=== PATIENT | female | born 1975 | race Caucasian/White ===

== ENCOUNTER 2018-06-07 16:27 | Inpatient (IN) ==
--- NOTE | 2018-06-07 17:01 | XR ---
EXAM DATE: 06/07/2018 4:59 PM EST AGE/SEX: 42 years / Female INDICATIONS: Chest pain. CLINICAL DATA: This is the patient's initial encounter. Patient reports that signs and symptoms have been present for 1 day and indicates a pain score of 10/10. MEDICAL/SURGICAL HISTORY: Hypertension. None. COMPARISON: No prior exams available for comparison. FINDINGS: A single AP view of the chest demonstrates the lungs to be symmetrically aerated without evidence of mass, infiltrate or effusion. The cardiomediastinal contours are unremarkable. Osseous structures a re intact. CONCLUSION: The lungs are clear. Electronically signed by: Jean Weber MD Board Certified Radiologist 06/07/2018 5:00 PM EST
[2018-06-07] MEDS: dilTIAZem Inj 125 MG in Sodium Chlor 0.9% Inj 100 ML IV.CONT PRN ×2 (17:03→23:34)
[2018-06-07 17:15] LABS: Baso % (Auto) 0.2 % (0.0-2.0); Eos % (Auto) 0.3 % (0.0-4.0); Hematocrit 44.1 % (35.0-46.0); Hemoglobin 15.1 gm/dL (11.6-15.3); Lymph # (Auto) 1.6 th/mm3 (1.0-4.8); Lymph % (Auto) 16.8 % (9.0-44.0); Mean Corpuscular HGB Conc 34.1 % (32.0-36.0); Mean Corpuscular Hemoglobin 29.1 pg (27.0-34.0); Mean Corpuscular Volume 85.2 fL (80.0-100.0); Mean Platelet Volume 8.5 fL (7.0-11.0); Mono # (Auto) 0.9 th/mm3 (0.0-0.9); Mono % (Auto) 9.8 % (0.0-8.0); Neut # (Auto) 6.8 th/mm3 (1.8-7.7); Neut % (Auto) 72.9 % (16.0-70.0); Platelet Count 325 th/mm3 (150-450); Red Blood Count 5.18 mil/mm3 (4.00-5.30); Red Cell Distribution Width 13.1 % (11.6-17.2); White Blood Count 9.3 th/mm3 (4.0-11.0)
[2018-06-07 17:28] LABS: Alanine Aminotransferase 68 U/L (10-53); Albumin 3.7 g/dL (3.4-5.0); Anion Gap 13 meq/L (5-15); Aspartate Aminotransferase 78 U/L (15-37); Blood Urea Nitrogen 7 mg/dL (7-18); Calcium 9.5 mg/dL (8.5-10.1); Carbon Dioxide 22.9 meq/L (21.0-32.0); Chloride 101 meq/L (98-107); Glomerular Filtration Rate 81 mL/min (>89); Glucose,Random 181 mg/dL (74-106); Potassium 3.5 meq/L (3.5-5.1); Sodium 137 meq/L (136-145)
[2018-06-07 17:31] LABS: Alkaline Phosphatase 102 U/L (45-117); Total Protein 8.2 g/dL (6.4-8.2); Troponin I 0.05 ng/mL (0.02-0.05)
[2018-06-07 17:33] LABS: Creatine Kinase 76 U/L (26-192)
[2018-06-07] MEDS ORDERED: Labetalol HCl Inj 100 MG/20 ML Vial IV.PUSH ONE (17:33)
[2018-06-07] MEDS ORDERED: Labetalol HCl Inj 20 MG/4 ML Vial IV.PUSH ONE (17:45)
[2018-06-07 18:08] LABS: Alcohol 5 mg/dL (0-5)
[2018-06-07] MEDS ORDERED: Bisacodyl 10 MG Supp RECTAL PRN (18:08)
[2018-06-07] MEDS ORDERED: Acetaminophen 325 MG Tablet PO PRN (18:08)
--- NOTE | 2018-06-07 18:10 | ED ---
HPI General Chief Complaint: Chest Pain Stated Complaint: syncope Time Seen by Provider: 06/07/18 16:38 History of Present Illness HPI narrative: This is a 42-year-old female with history of atrial fibrillation , substance-induced mood disorder, presents today with complaints of palpitations and shortness of breath. Patient states she felt herself started having palpitations and chest tightness earlier this afternoon. She reports the pain as a tightness, she could not quantitate it on the pain scale. She also reports feeling anxious. She reports that she is been taking all of her medications as prescribed which includes diltiazem. Related Data Home Medications Medication Instructions Recorded Confirmed diltiazem HCl [Cardizem] 30 mg PO BID 06/07/18 06/07/18 Previous Rx's Medication Instructions Recorded lisinopril 10 mg PO DAILY #30 tab 03/06/18 Allergies Allergy/AdvReac Type Severity Reaction Status Date / Time No Known Allergies Allergy Verified 03/06/18 20:13 Review of Systems ROS: all other systems reviewed are negative Constitutional Reports system reviewed and no additional complaints, except as [facility] Eyes Reports system reviewed and no additional complaints, except as [facility] ENT Reports system reviewed and no additional complaints, except as [facility] Cardiovascular Reports chest pain (Tightness), Reports irregular heart rhythm, Reports palpitations and Reports dyspnea Respiratory Reports dyspnea Gastrointestinal Reports system reviewed and no additional complaints, except as [facility] Genitourinary Reports system reviewed and no additional complaints, except as [facility] Musculoskeletal Reports system reviewed and no additional complaints, except as [facility] Neurologic Reports system reviewed and no additional complaints, except as [facility] Social History Social History Substance History: No History of Abuse Second Hand Smoke Exposure: Yes Smoking Status: Never smoker Tobacco Type: Cigarettes How Often Do You Have a Drink Containing Alcohol: Never Recent Travel in [facility] within the Last 8 Weeks: No Recent Out of Country Travel within the Last 8 Weeks: No Immunization History Tetanus Immunization: Unsure Exam Narrative Exam Narrative: GENERAL: Well-developed well-nourished female who appears anxious. Patient is in no acute respiratory distress. SKIN: Focused skin assessment warm/dry. HEAD: Atraumatic. Normocephalic. EYES: Pupils equal and round. No scleral icterus. No injection or drainage. ENT: No nasal bleeding or discharge. Mucous membranes pink and moist. NECK: Trachea midline. Supple. No JVD. CARDIOVASCULAR: Irregularly irregular with a rate in the 180s-200s. No murmur appreciated. RESPIRATORY: No accessory muscle use. Clear to auscultation. Breath sounds equal bilaterally. GASTROINTESTINAL: Abdomen soft, non-tender, nondistended. Hepatic and splenic margins not palpable. MUSCULOSKELETAL: No obvious deformities. No clubbing. No cyanosis. No edema. NEUROLOGICAL: Awake and alert. No obvious cranial nerve deficits. Motor grossly within normal limits. Normal speech. PSYCHIATRIC: Anxious appearing. Course Initial Documented Vital Signs Temperature 97.9 F 06/07/18 16:28 Pulse Rate 200 H 06/07/18 16:28 Respiratory Rate 26 H 06/07/18 16:28 Pulse Oximetry 95 06/07/18 16:28 Last Documented Vital Signs Temperature 97.9 F 06/07/18 16:28 Pulse Rate 145 H 06/07/18 17:32 Respiratory Rate 24 06/07/18 17:32 Blood Pressure 92/58 L 06/07/18 17:32 Pulse Oximetry 99 06/07/18 17:32 Medical Decision Making [facility] Narrative Medical decision making narrative: This is a 42-year-old female with history of A. fib, presents today with complaints of potation's, chest tightness, shortness of breath. The patient is noted to be in A. fib with RVR. She was given 2 loading doses of IV diltiazem. Her heart rate still remains in the mid 100s. She was given a 10 mg dose of labetalol. She is currently on a diltiazem drip at 15 mg/h She will be admitted to the hospital. There is a call Out to the admitting physician. There is a tox screen and alcohol level pending at this time. Looking through old records, she has had alcohol induced mood disorder and alcohol abuse. She has been given 2 mg of Ativan in addition to the diltiazem and labetalol. Medical Screen Exam Complete: Yes Emergency Medical Condition: Yes Differential Diagnosis Differential Diagnosis: A. fib with RVR versus metabolic derangement versus SVT versus alcohol withdrawal Lab Data Result diagrams: 06/07/18 16:35 06/07/18 16:35 Lab Results 06/07/18 06/07/18 06/07/18 Range/Units 16:35 16:35 16:35 WBC 9.3 (4.0-11.0) th/mm3 RBC 5.18 (4.00-5.30) mil/mm3 Hgb 15.1 (11.6-15.3) gm/dL Hct 44.1 (35.0-46.0) % MCV 85.2 (80.0-100.0) fL MCH 29.1 (27.0-34.0) pg MCHC 34.1 (32.0-36.0) % RDW 13.1 (11.6-17.2) % Plt Count 325 (150-450) th/mm3 MPV 8.5 (7.0-11.0) fL Neut % (Auto) 72.9 H (16.0-70.0) % Lymph % (Auto) 16.8 (9.0-44.0) % Mathews % (Auto) 9.8 H (0.0-8.0) % Eos % (Auto) 0.3 (0.0-4.0) % Baso % (Auto) 0.2 (0.0-2.0) % Neut # (Auto) 6.8 (1.8-7.7) th/mm3 Lymph # (Auto) 1.6 (1.0-4.8) th/mm3 Mathews # (Auto) 0.9 (0.0-0.9) th/mm3 Eos # (Auto) 0.0 (0.0-0.4) th/mm3 Baso # (Auto) 0.0 (0.0-0.2) th/mm3 WBC Differential . Differential Comment Auto diff final Sodium 137 (136-145) meq/L Potassium 3.5 (3.5-5.1) meq/L Chloride 101 (98-107) meq/L Carbon Dioxide 22.9 (21.0-32.0) meq/L Anion Gap 13 (5-15) meq/L BUN 7 (7-18) mg/dL Creatinine 0.78 (0.50-1.00) mg/dL Estimated GFR 81 L (>89) mL/min Random Glucose 181 H (74-106) mg/dL Calcium 9.5 (8.5-10.1) mg/dL Total Bilirubin 1.2 H (0.2-1.0) mg/dL AST 78 H (15-37) U/L ALT 68 H (10-53) U/L Alkaline Phosphatase 102 (45-117) U/L Total Creatine Kinase 76 (26-192) U/L Troponin I 0.05 (0.02-0.05) ng/mL Total Protein 8.2 (6.4-8.2) g/dL Albumin 3.7 (3.4-5.0) g/dL Serum Alcohol Cancelled Imaging Data Radiologist's impression: Chest X-Ray 06/07/18 16:39 CONCLUSION: The lungs are clear. Discharge Plan Discharge Disposition Patient Disposition: ED Admit(ED Internal Use Only) Discharge Details Diagnosis: Atrial fibrillation with rapid ventricular response, Elevated liver enzymes Physicians Team ED Provider: Shyam Frazier Primary Care Provider: Primary Care Cande Erickson Rxs /Orders / Referrals /Forms Prescriptions: No Action lisinopril 10 mg tablet 10 mg PO DAILY Qty: 30 RF: 2 diltiazem HCl [Cardizem] 30 mg Tablet 30 mg PO BID RF: 0 Discharge Instructions Patient Printed Instructions: Chest Pain (ED) Discharge Interventions Interventions: Vital Signs Last Done: 06/07/18 17:32 Status ED Status: With Doctor
[2018-06-07] MEDS ORDERED: Haloperidol Inj 5 MG/ML Ampul IV.PUSH PRN (18:15)
[2018-06-07] MEDS ORDERED: LORazepam 1 MG Tablet PO PRN (18:15)
[2018-06-07 18:31] LABS: Amphetamine Screen,Urine Neg (Neg); Barbiturate Screen,Urine Neg (Neg); Cannabinoid Screen,Urine Neg (Neg); Cocaine Screen,Urine Neg (Neg)
[2018-06-07 18:36] LABS: Opiate Screen,Urine Neg (Neg)
[2018-06-07] MEDS ORDERED: Magnesium Oxide 400 MG Tablet PO ONE (19:00)
[2018-06-07 19:01] LABS: Magnesium 1.1 mg/dL (1.5-2.5)
--- NOTE | 2018-06-07 19:14 | ECG ---
Date Performed: 06/07/2018 Time Performed: 16:38:52 PTAGE: 42 years EKG: ATRIAL FIBRILLATION WITH RAPID VENTRICULAR RESPONSE VOLTAGE CRITERIA FOR LVH Nonspecific ST and T wave abnormalities Compared to prior electrocardiogram, Rapid atrial fibrillation is present. The extremely fast rate along with short RR intervals might raise the concern of some type of accesso ry pathway. DOCTOR: Alejandro Powers Interpretating Date/Time 06/07/2018 19:12:09
[2018-06-07] MEDS: Enoxaparin Inj 40 MG/0.4 ML Syringe SQ SCH (19:30)
--- NOTE | 2018-06-07 20:07 | P.HPIM ---
History of Present Illness Primary Care Physician: No Primary Care Physician Chief Complaint: Tremors, nausea, chest pain, palpitations History of Present Illness: This is a 42-year-old female with history of atrial fibrillation, substance-induced mood disorder, alcohol use presents today with complaints of palpitations and shortness of breath. Patient states she felt herself started having palpitations and chest tightness earlier this afternoon. She reports the pain as a tightness, she could not quantitate it on the pain scale. She also reports feeling anxious. She reports that she is been taking all of her medications as prescribed which includes diltiazem. Patient also complains of associated nausea no vomiting. She also has tremors. No cough fever or chills. No abdominal pain. No diarrhea. The patient says she was not able to eat anything today but will like to try some food later. Inpatient Certification Inpatient Certification: I certify that the inpatient services were ordered in accordance with Medicare regulations governing the order. This includes certification that hospital inpatient services are reasonable and necessary and in the case of services not specified as inpatient-only under 42 CFR 419.22(n), that they are appropriately provided as inpatient services in accordance to with the 2-midnight benchmark under 43 CFR 412.3(e) Estimated Total Length of Stay (Days): 3 Plans for Post Hospital Care: Not yet determined Review of Systems Review of Systems: all other systems reviewed are negative [facility] Medical History Medical History Hypertension (Acute) Surgical History Surgical History History of appendectomy (Acute) History of spinal surgery (Acute) Social History Social History Substance History: No History of Abuse Second Hand Smoke Exposure: Yes Smoking Status: Never smoker Tobacco Type: Cigarettes How Often Do You Have a Drink Containing Alcohol: Never Recent Travel in [place] within the Last 8 Weeks: No Recent Out of Country Travel within the Last 8 Weeks: No Immunization History Tetanus Immunization: Unsure Medications and Allergies Allergies Allergy/AdvReac Type Severity Reaction Status Date / Time No Known Allergies Allergy Verified 03/06/18 20:13 Home Medications Medication Instructions Recorded Confirmed Type diltiazem HCl [Cardizem] 30 mg PO BID 06/07/18 06/07/18 History Active Medications: Active Medications Acetaminophen (Tylenol) 650 mg PO Q4H PRN PRN Reason: Temp > 100.4 Al Hydroxide/Mg Hydroxide (Milk Of Magnesia Liq) 30 ml PO Q12H PRN PRN Reason: Mild Constipation Bisacodyl (Dulcolax Supp) 10 mg RECTAL DAILY PRN PRN Reason: SEVERE CONSITIPATION Diltiazem HCl (Cardizem Inj) 24.80430 mg 0.35 mg/kg (24.60231 mg) IV.PUSH BOLUS PRN PRN Reason: Inadaquate response Last Admin: 06/07/18 16:52 Dose: 24.64908 mg Diltiazem HCl (Cardizem Inj) 24.92236 mg 0.35 mg/kg (24.53899 mg) IV.PUSH BOLUS PRN PRN Reason: Inadaquate response Last Admin: 06/07/18 17:05 Dose: 24.62964 mg Enoxaparin Sodium (Lovenox Inj) 40 mg SQ Q24H OLENA Last Admin: 06/07/18 19:30 Dose: 40 mg Flumazenil (Romazicon Inj) 0.2 mg IV.PUSH Q1M PRN PRN Reason: OVERSEDATION Haloperidol Lactate (Haldol Inj) 1 mg IV.PUSH Q15M PRN PRN Reason: for severe agitation Diltiazem HCl 125 mg/ Sodium (Chloride) 125 mls @ 5 mls/hr IV.CONT TITRATE PRN ; Protocol PRN Reason: Per Protocol Last Titration: 06/07/18 17:14 Dose: 15 mg/hr, 15 mls/hr Potassium Chloride 10 meq/ (Dextrose/Sodium Chloride) 1,005 mls @ 42 mls/hr IV.CONT .[id number] OLENA Lactulose (Lactulose Liq) 30 ml PO DAILY PRN PRN Reason: SEVERE CONSITIPATION Lisinopril (Prinivil) 10 mg PO DAILY OLENA Lorazepam (Ativan) 2 mg PO Q2H PRN PRN Reason: for CIWA 11-14 Lorazepam (Ativan Inj) 2 mg IV.PUSH Q2H PRN PRN Reason: for CIWA 11-14 Lorazepam (Ativan Inj) 2 mg IV.PUSH Q1H PRN PRN Reason: for CIWA 15-20 Lorazepam (Ativan Inj) 2 mg IV.PUSH Q15M PRN PRN Reason: for CIWA > 20 Lorazepam (Ativan Inj) 1 mg IV.PUSH Q4H PRN PRN Reason: for CIWA 8-10 Lorazepam (Ativan) 1 mg PO Q4H PRN PRN Reason: for CIWA 8-10 Ondansetron HCl (Zofran Inj) 4 mg IV.PUSH Q6H PRN PRN Reason: NAUSEA OR VOMITING Senna/Docusate Sodium (Avis-Colace) 1 tab PO BID OLENA Sennosides (Senokot) 17.2 mg PO Q12H PRN PRN Reason: Moderate Constipation Sodium Chloride (Ns Flush) 2 ml IV.FLUSH BID OLENA Sodium Chloride (Ns Flush) 2 ml IV.FLUSH PRN PRN PRN Reason: FLUSH AFTER USING IV ACCESS Physical Exam Vital signs: Vital Signs 06/07/18 16:28 06/07/18 16:38 06/07/18 16:39 Temperature 97.9 F Pulse Rate 200 H 181 H 143 H Respiratory Rate 26 H 32 H 26 H Blood Pressure 103/63 95/56 L Pulse Oximetry 95 100 100 06/07/18 17:32 Temperature Pulse Rate 145 H Respiratory Rate 24 Blood Pressure 92/58 L Pulse Oximetry 99 Intake & Output 06/07/18 06/07/18 06/08/18 06:59 18:59 06:59 Weight 69.853 kg Narrative: GENERAL: 42 yo female, well nourished, well developed patient, anxious with tremors SKIN: Warm and dry. HEAD: Atraumatic. Normocephalic. EYES: Pupils equal and round. No scleral icterus. No injection or drainage. ENT: No nasal bleeding or discharge. Mucous membranes pink and moist. NECK: Trachea midline. No JVD. CARDIOVASCULAR: Irregular rate and rhythm. RESPIRATORY: No accessory muscle use. Clear to auscultation. Breath sounds equal bilaterally. GASTROINTESTINAL: Abdomen soft, non-tender, nondistended. Hepatic and splenic margins not palpable. MUSCULOSKELETAL: Extremities without clubbing, cyanosis, or edema. No obvious deformities. NEUROLOGICAL: Awake and alert. No obvious cranial nerve deficits. Motor grossly within normal limits. Tremors. Normal speech. PSYCHIATRIC: Appropriate mood and affect; insight and judgment normal. Results Labs CBC & Chem 7: 06/07/18 16:35 06/07/18 16:35 Imaging Impressions Chest X-Ray 06/07/18 16:39 CONCLUSION: The lungs are clear. Caprini VTE Risk Assessment Caprini VTE Risk Assessment: Moderate/High Risk (score >= 2) Caprini Risk Assessment Model: Point Value = 1 Point Value = 2 Point Value = 3 Point Value = 5 Age 41-60 Minor surgery BMI > 25 kg/m2 Swollen legs Varicose veins or History of unexplained or recurrent spontaneous Oral contraceptives or hormone replacement Sepsis (< 1 month) Serious lung disease, including pneumonia (< 1 month) Abnormal pulmonary function Acute myocardial infarction Congestive heart failure (< 1 month) History of inflammatory bowel disease Medical patient at bed rest Age 61-74 Arthroscopic surgery Major open surgery (> 45 min) Laparoscopic surgery (> 45 min) Malignancy Confined to bed (> 72 hours) Immobilizing plaster cast Central venous access Age >= 75 History of VTE Family history of VTE Factor V Leiden Prothrombin [id number] Lupus anticoagulant Anticardiolipin antibodies Elevated serum homocysteine Heparin-induced thrombocytopenia Other congenital or acquired thrombophilia Stroke (< 1 month) Elective arthroplasty Hip, pelvis, or leg fracture Acute spinal cord injury (< 1 month) Prophylaxis Regimen: Total Risk Factor Score Risk Level Prophylaxis Regimen 0-1 Low Early ambulation 2 Moderate Order ONE of the following: *Sequential Compression Device (SCD) *Heparin 5000 units SQ BID 3-4 Higher Order ONE of the following medications: *Heparin 5000 units SQ TID *Enoxaparin/Lovenox 40 mg SQ daily (WT < 150 kg, CrCl > 30 mL/min) *Enoxaparin/Lovenox 30 mg SQ daily (WT < 150 kg, CrCl > 10-29 mL/min) *Enoxaparin/Lovenox 30 mg SQ BID (WT < 150 kg, CrCl > 30 mL/min) AND/OR *Sequential Compression Device (SCD) 5 or more Highest Order ONE of the following medications: *Heparin 5000 units SQ TID (Preferred with Epidurals) *Enoxaparin/Lovenox 40 mg SQ daily (WT < 150 kg, CrCl > 30 mL/min) *Enoxaparin/Lovenox 30 mg SQ daily (WT < 150 kg, CrCl > 10-29 mL/min) *Enoxaparin/Lovenox 30 mg SQ BID (WT < 150 kg, CrCl > 30 mL/min) AND *Sequential Compression Device (SCD) Assessment and Plan Plan 42-year-old female with A. fib with RVR History of mood disorder. Alcohol withdrawals History of hypertension Admit to [facility] patient received IV diltiazem to loading doses with heart rate still in 150s. She also was given 10 mg dose of labetalol and is started on Cardizem drip. Continue Cardizem drip Monitor on telemetry We will do 2D echo On CIWA protocol Start IV fluids Monitor electrolytes and replenish Check TSH Restart home medications as appropriate DVT prophylaxis SCDs/teds/Lovenox
[2018-06-07] MEDS: Potassium Chloride Inj 10 MEQ in Dextrose 5%/NaCl 0.9% Inj 1,000 ML IV.CONT SCH (21:30)
[2018-06-07] MEDS: Senna/Docusate Sodium 8.6/50 MG Tablet PO SCH (23:29)
[2018-06-08] MEDS: Senna/Docusate Sodium 8.6/50 MG Tablet PO SCH ×2 (08:01→20:38)
[2018-06-08] MEDS: Lisinopril 10 MG Tablet PO SCH (08:02)
[2018-06-08 08:57] LABS: Baso % (Auto) 0.5 % (0.0-2.0); Eos # (Auto) 0.1 th/mm3 (0.0-0.4); Eos % (Auto) 2.8 % (0.0-4.0); Hemoglobin 12.2 gm/dL (11.6-15.3); Lymph # (Auto) 1.2 th/mm3 (1.0-4.8); Lymph % (Auto) 31.1 % (9.0-44.0); Mean Corpuscular HGB Conc 34.7 % (32.0-36.0); Mean Corpuscular Hemoglobin 29.3 pg (27.0-34.0); Mean Corpuscular Volume 84.5 fL (80.0-100.0); Mean Platelet Volume 8.5 fL (7.0-11.0); Mono # (Auto) 0.5 th/mm3 (0.0-0.9); Mono % (Auto) 12.3 % (0.0-8.0); Neut # (Auto) 2.1 th/mm3 (1.8-7.7); Neut % (Auto) 53.3 % (16.0-70.0); Platelet Count 196 th/mm3 (150-450); Red Blood Count 4.15 mil/mm3 (4.00-5.30); Red Cell Distribution Width 13.4 % (11.6-17.2)
[2018-06-08] MEDS ORDERED: Magnesium Sulfate Inj 2 GM in Sodium Chlor 0.9% Inj 96 ML IV.SIG ONE (09:00)
[2018-06-08] MEDS ORDERED: Potassium Phosphate 500 MG Soluble Tablet PO ONE (09:00)
[2018-06-08 09:37] LABS: Anion Gap 8 meq/L (5-15); Blood Urea Nitrogen 9 mg/dL (7-18); Calcium 8.5 mg/dL (8.5-10.1); Chloride 107 meq/L (98-107); Glomerular Filtration Rate Greater Than 89 mL/min (>89); Glucose,Random 107 mg/dL (74-106); Potassium 3.2 meq/L (3.5-5.1); Sodium 141 meq/L (136-145)
[2018-06-08] MEDS: Magnesium Oxide 400 MG Tablet PO SCH (09:40)
[2018-06-08] MEDS: Folic Acid 1 MG Tablet PO SCH (09:40)
[2018-06-08 12:44] LABS: Hemoglobin A1c 5.3 % (4.3-6.0)
--- NOTE | 2018-06-08 13:02 | ECHRPT ---
Indication: ATRIAL FIB/FLUTTER CONCLUSIONS Normal left ventricular size and wall thickness. The left ventricular systolic function is normal wi th an estimated ejection fraction in the range of 60-65%. No regional wall motion abnormalities are pres ent. Trace mitral valve regurgitation. There is trace tricuspid valve regurgitation. The estimated pulmonary arterial pressure is 30 mmHg. BP: / HR: Rhythm: Sinus MEASUREMENTS (Male / Female) Normal Values Technical Quality:Fair 2D ECHO LV Diastolic Diameter PLAX 5.0 cm 4.2 - 5.9 / 3.9 - 5.3 cm LV Systolic Diameter PLAX 3.0 cm IVS Diastolic Thickness 1.0 cm 0.6 - 1.0 / 0.6 - 0.9 cm LVPW Diastolic Thickness 1.1 cm 0.6 - 1.0 / 0.6 - 0.9 cm LV Relative Wall Thickness 0.4 RV Internal Dim ED PLAX 2.0 cm LVOT Diameter 1.9 cm Aortic Root Diameter 2.9 cm LA Systolic Diameter LX 3.2 cm 3.0 - 4.0 / 2.7 - 3.8 cm DOPPLER AV Peak Velocity 233.5 cm/s AV Peak Gradient 21.8 mmHg AV Mean Gradient 12.5 mmHg AV Velocity Time Integral 37.1 cm LVOT Peak Velocity 161.0 cm/s LVOT Peak Gradient 10.4 mmHg LVOT Velocity Time Integral 27.9 cm AV Area Cont Eq vti 2.1 cm AV Area Cont Eq pk 2.0 cm Mitral E Point Velocity 127.0 cm/s Mitral A Point Velocity 101.0 cm/s Mitral E to A Ratio 1.3 LV E' Lateral Velocity 10.9 cm/s Mitral E to LV E' Lateral Ratio 11.7 LV E' Septal Velocity 8.1 cm/s Mitral E to LV E' Septal Ratio 15.7 TR Peak Velocity 228.0 cm/s TR Peak Gradient 21.0 mmHg Right Atrial Pressure 10.0 mmHg Pulmonary Artery Systolic Pressu 30.8 mmHg Right Ventricular Systolic Press 30.8 mmHg PV Peak Velocity 88.0 cm/s PV Peak Gradient 3.1 mmHg FINDINGS LEFT VENTRICLE Normal left ventricular size and wall thickness. The left ventricular systolic function is normal wi th an estimated ejection fraction in the range of 60-65%. No regional wall motion abnormalities are pres ent. RIGHT VENTRICLE Normal right ventricular size and systolic function. LEFT ATRIUM The left atrial size is normal. RIGHT ATRIUM The right atrial size is normal. ATRIAL SEPTUM Normal atrial septal thickness without atrial level shunting by limited color doppler interrogation. AORTA The aortic root and proximal ascending aorta are normal in size on limited imaging. MITRAL VALVE Trace mitral valve regurgitation. AORTIC VALVE Trileaflet aortic valve. No aortic valve stenosis or regurgitation. TRICUSPID VALVE There is trace tricuspid valve regurgitation. The estimated pulmonary arterial pressure is 30 mmHg. PULMONARY VALVE No pulmonary valve regurgitation or stenosis. VESSELS The inferior vena cava is normal in size. PERICARDIUM No pericardial effusion. Shane Weinstein MD (Electronically Signed) Final Date:08 June 2018 13:01
--- NOTE | 2018-06-08 13:55 | P.PNIM ---
Subjective Interval history: In bed still with tremors and feels her heart fluttering. Still with tremors. No lightheadedness. Feels tired . No chest pain . No n/v/d/ c. No fever or chills. No cough. Physical Exam Vital signs: Vital Signs 06/07/18 16:28 06/07/18 16:38 06/07/18 16:39 Temperature 97.9 F Pulse Rate 200 H 181 H 143 H Respiratory Rate 26 H 32 H 26 H Blood Pressure 103/63 95/56 L Pulse Oximetry 95 100 100 06/07/18 17:32 06/07/18 20:00 06/08/18 00:06 Temperature Pulse Rate 145 H 142 H 106 H Respiratory Rate 24 31 H Blood Pressure 92/58 L 92/68 L Pulse Oximetry 99 100 06/08/18 04:00 06/08/18 05:00 06/08/18 05:57 Temperature 99 F Pulse Rate 100 H 105 H 103 H Respiratory Rate 22 Blood Pressure 134/69 Pulse Oximetry 98 06/08/18 07:00 06/08/18 08:00 06/08/18 09:00 Temperature 99 F Pulse Rate 97 H 88 80 Respiratory Rate 20 Blood Pressure 120/74 113/72 Pulse Oximetry 98 06/08/18 10:00 06/08/18 11:00 06/08/18 12:00 Temperature 99.2 F Pulse Rate 84 78 88 Respiratory Rate 20 Blood Pressure 113/66 Pulse Oximetry 98 06/08/18 13:00 Temperature Pulse Rate 88 Respiratory Rate Blood Pressure Pulse Oximetry Intake & Output 06/07/18 06/08/18 06/08/18 18:59 06:59 18:59 Intake Total 605 / 605 Output Total 650 / 650 Balance -45 / -45 Weight 69.853 kg 65.7 kg Intake: IV 125 / 125 Cardizem Inj 125 MG In NS Inj 125 / 125 100 ML @ 5 MG/HR 5 mls/hr IV. CONT TITRATE PRN Rx#:[id number] Oral 480 / 480 Output: Urine 650 / 650 Other: # Bowel Movements 0 Narrative: GENERAL: 42 yo female, well nourished, well developed patient, less anxious. CARDIOVASCULAR: Irregular rate and rhythm. RESPIRATORY: No accessory muscle use. Clear to auscultation. Breath sounds equal bilaterally. GASTROINTESTINAL: Abdomen soft, non-tender, nondistended. Hepatic and splenic margins not palpable. MUSCULOSKELETAL: Extremities without clubbing, cyanosis, or edema. No obvious deformities. NEUROLOGICAL: Awake and alert. No obvious cranial nerve deficits. Motor grossly within normal limits. Less tremors. Normal speech. PSYCHIATRIC: Appropriate mood and affect; insight and judgment normal. Results Labs CBC & Chem 7: 06/08/18 08:05 06/08/18 08:05 Imaging Imaging: Impressions Chest X-Ray 06/07/18 16:39 CONCLUSION: The lungs are clear. Assessment and Plan Plan 42-year-old female with A. fib with RVR History of mood disorder. Alcohol withdrawals History of hypertension Admit to [facility] patient received IV diltiazem to loading doses with heart rate still in 150s. She also was given 10 mg dose of labetalol and is started on Cardizem drip. Continue Cardizem drip Monitor on telemetry 2D echo reviewed normal EF 60% On CIWA protocol Continue IV fluids Monitor electrolytes and replenish Hyperthyroidism, TSH low and elevated free t3 and t4 will start mehimazole Restart home medications as appropriate DVT prophylaxis SCDs/teds/Lovenox Progress Note: Quality VTE Deep Vein Thrombosis/Pulmonary Embolism Present on Admission: No
--- NOTE | 2018-06-08 13:57 | MB ---
cc: Arnulfo Murray MD DATE: 06/08/2018 HISTORY OF PRESENT ILLNESS: This is a 42-year-old lady who states she has a history of atrial fibrillation, but she has never seen a regional sales executive. Apparently, she says this was diagnosed during a previous admission. She presents with a chief complaint of palpitations, shortness of breath. Currently, she is resting comfortably in bed, in no acute distress. Denies chest pain, fever, chills, cough, GI or bleeding, pain, orthopnea, syncope or dizziness. PAST MEDICAL HISTORY: Per history of present illness. She has a history of hypertension, appendectomy, spinal surgery. ALLERGIES: NONE. MEDICATIONS AT HOME: At home, she is on 1. Lisinopril 10 mg daily. 2. Diltiazem 30 mg b.i.d. SOCIAL HISTORY: Denies tobacco use. She does drink alcohol 2-3 times a week. Also drinks one cup of coffee a day. MEDICATIONS: In the hospital: 1. Cardizem drip. 2. Lovenox 40 units subcutaneous q.24 hours. 3. Folic acid 1 mg daily. 4. Lisinopril 10 mg daily. 5. Thiamine 100 mg b.i.d. PHYSICAL EXAMINATION: VITAL SIGNS: Pulse 97, temperature 99, respiratory rate 20, blood pressure 120/74, sats 98% on room air. GENERAL: She is alert and oriented x3, in no acute distress. NECK: Supple. No JVD. No bruit. CARDIOVASCULAR: S1, S2. No murmurs, rubs, gallops. LUNGS: Clear to auscultation bilaterally. ABDOMEN: Soft, nontender, nondistended with positive bowel sounds. EXTREMITIES: No lower extremity edema. LABORATORY DATA: Her EKG initially shows atrial fibrillation at a rate of 196 beats per minute, nonspecific ST-T wave changes. She had a 2-D echo done today and reviewed by Dr. Weinstein and shows an EF of 60-65%. PA systolic pressure 30 mmHg and trace MR. Chest x-ray: Lungs are clear. Labs: White count 4, hemoglobin 12.2, hematocrit 35, platelet count 196,000. Sodium 137, potassium 3.5, chloride 101, bicarbonate 22.9, BUN 7, creatinine 0.78, magnesium is 1.1, AST 78, ALT 68. TSH is less than 0.005. Troponin is 0.05. Potassium this morning is 3.2. DIAGNOSES: 1. Atrial fibrillation with rapid ventricular response. 2. Hypomagnesemia. 3. Hypokalemia. 4. Elevated liver enzymes. 5. Hyperthyroidism. DISCUSSION: The patient's CHADS-VASc score is 1, therefore I have advised her to take Coumadin or another oral anticoagulant agent which she has agreed to. Will get a urine test first. I also recommend repletion of electrolytes and abstinence of alcohol. Convert her IV Cardizem to p.o. MD KISHOR Kelly/sb , 01:06 PM , 01:12 PM
[2018-06-08] MEDS: dilTIAZem Inj 125 MG in Sodium Chlor 0.9% Inj 100 ML IV.CONT PRN (14:13)
[2018-06-08] MEDS: methIMAzole 5 MG Tablet PO SCH (15:59)
[2018-06-08] MEDS: dilTIAZem 30 MG Tablet PO SCH (20:38)
[2018-06-08] MEDS: Enoxaparin Inj 40 MG/0.4 ML Syringe SQ SCH (20:38)
[2018-06-08] MEDS: Potassium Chloride Inj 10 MEQ in Dextrose 5%/NaCl 0.9% Inj 1,000 ML IV.CONT SCH (20:41)
[2018-06-09 04:14] VITALS: RESP 18; O2SAT 98
[2018-06-09] MEDS: Folic Acid 1 MG Tablet PO SCH (08:01)
[2018-06-09] MEDS: Senna/Docusate Sodium 8.6/50 MG Tablet PO SCH (08:01)
[2018-06-09] MEDS: methIMAzole 5 MG Tablet PO SCH (08:01)
[2018-06-09] MEDS: Magnesium Oxide 400 MG Tablet PO SCH (08:01)
[2018-06-09] MEDS: dilTIAZem 30 MG Tablet PO SCH (08:01)
[2018-06-09] MEDS: Lisinopril 10 MG Tablet PO SCH (08:01)
[2018-06-09 09:35] LABS: Baso % (Auto) 0.4 % (0.0-2.0); Eos # (Auto) 0.2 th/mm3 (0.0-0.4); Eos % (Auto) 4.1 % (0.0-4.0); Hematocrit 34.7 % (35.0-46.0); Lymph # (Auto) 1.5 th/mm3 (1.0-4.8); Lymph % (Auto) 36.9 % (9.0-44.0); Mean Corpuscular HGB Conc 34.6 % (32.0-36.0); Mean Corpuscular Hemoglobin 29.2 pg (27.0-34.0); Mean Corpuscular Volume 84.2 fL (80.0-100.0); Mean Platelet Volume 8.9 fL (7.0-11.0); Mono # (Auto) 0.4 th/mm3 (0.0-0.9); Mono % (Auto) 9.6 % (0.0-8.0); Platelet Count 155 th/mm3 (150-450); Red Blood Count 4.12 mil/mm3 (4.00-5.30); Red Cell Distribution Width 12.7 % (11.6-17.2); White Blood Count 4.1 th/mm3 (4.0-11.0)
[2018-06-09 10:00] LABS: Anion Gap 10 meq/L (5-15); Blood Urea Nitrogen 7 mg/dL (7-18); Calcium 8.5 mg/dL (8.5-10.1); Carbon Dioxide 23.8 meq/L (21.0-32.0); Chloride 107 meq/L (98-107); Glomerular Filtration Rate Greater Than 89 mL/min (>89); Glucose,Random 77 mg/dL (74-106); Magnesium 1.5 mg/dL (1.5-2.5); Potassium 3.2 meq/L (3.5-5.1); Sodium 141 meq/L (136-145)
--- NOTE | 2018-06-09 11:40 | P.DS ---
DS: Providers Date of admission: 06/07/18 18:58 Primary care physician: No Primary Care Physician Consults: 06/07/18 18:12 Consult to Cardiology Routine Consulting Provider: Shane Weinstein Does the patient have a Customer Retention Representative who follows them?: No Preferred Chief Of Service:: Internet Sales Consultant Physician Reason for Consultation: afib with rvr Notified:: Service Spoke with:: Gaurang Date Notified:: 06/07/18 Time Notified:: 20:17 Ordering Provider: SARA Brief History from admission: This is a 42-year-old female with history of atrial fibrillation, substance-induced mood disorder, alcohol use presents today with complaints of palpitations and shortness of breath. Patient states she felt herself started having palpitations and chest tightness earlier this afternoon. She reports the pain as a tightness, she could not quantitate it on the pain scale. She also reports feeling anxious. She reports that she is been taking all of her medications as prescribed which includes diltiazem. Patient also complains of associated nausea no vomiting. She also has tremors. No cough fever or chills. No abdominal pain. No diarrhea. The patient says she was not able to eat anything today but will like to try some food later. DS: Summary 42-year-old female with h/o Afib , EtOH use presented to ED with EtOH withdrawals and Afib with RVR. The patient was admited with Mc burkett with RVR. History of mood disorder. Alcohol withdrawals. The patient received IV diltiazem to loading doses with heart rate still in 150s. She also was given 10 mg dose of labetalol and is started on Cardizem drip chabed to PO meds.. The patient converted to NSR. 2D echo reviewed normal EF 60%. Was placed on CIWA protocol , received IV fluids , electrolytes were replenished. Also noted with Hyperthyroidism, TSH low and elevated free t3 and t4 and started on methimazole. Patient converted to NSR. Cardiology recommended ASA due to poss noncompliance with coumadin 2/2 etoh use. Patient to follow up as OP at [facility] and if need with cardiology. Patient also was counselled extensively regarding life style modifications, EtOH use. The patient expressed understanding. She is DC home in stable condition to follow up as OP with PCP and consultants. Time Spent with Patient Total time spent providing and/or coordinating discharge services: > 30 min Quality: VTE Deep Vein Thrombosis/Pulmonary Embolism Present on Admission: No Exam Narrative Exam Narrative: GENERAL: 42 yo female, well nourished, well developed patient, appears in nad. CARDIOVASCULAR: Regular rate and rhythm. RESPIRATORY: No accessory muscle use. Clear to auscultation. Breath sounds equal bilaterally. GASTROINTESTINAL: Abdomen soft, non-tender, nondistended. Hepatic and splenic margins not palpable. MUSCULOSKELETAL: Extremities without clubbing, cyanosis, or edema. No obvious deformities. NEUROLOGICAL: Awake and alert. No obvious cranial nerve deficits. Motor grossly within normal limits. No more tremors. Normal speech. PSYCHIATRIC: Appropriate mood and affect; insight and judgment normal. Results Labs on day of discharge: Labs from last 24 hours 06/09/18 06/09/18 06/08/18 06:55 06:55 08:05 WBC 4.1 RBC 4.12 Hgb 12.0 Hct 34.7 L MCV 84.2 MCH 29.2 MCHC 34.6 RDW 12.7 Plt Count 155 MPV 8.9 Prelim Diff (Auto) Slide review pending Neut % (Auto) 49.0 Lymph % (Auto) 36.9 Jay % (Auto) 9.6 H Eos % (Auto) 4.1 H Baso % (Auto) 0.4 Neut # (Auto) 2.0 Lymph # (Auto) 1.5 Jay # (Auto) 0.4 Eos # (Auto) 0.2 Baso # (Auto) 0.0 WBC Differential . Diff Scan Auto diff confirmed Differential Comment . Sodium 141 Potassium 3.2 L Chloride 107 Carbon Dioxide 23.8 Anion Gap 10 BUN 7 Creatinine 0.28 L Estimated GFR Greater than 89 Random Glucose 77 Hemoglobin A1c Calcium 8.5 Magnesium 1.5 Beta HCG, Quant Less than 1 06/07/18 16:35 WBC RBC Hgb Hct MCV MCH MCHC RDW Plt Count MPV Prelim Diff (Auto) Neut % (Auto) Lymph % (Auto) Jay % (Auto) Eos % (Auto) Baso % (Auto) Neut # (Auto) Lymph # (Auto) Jay # (Auto) Eos # (Auto) Baso # (Auto) WBC Differential Diff Scan Differential Comment Sodium Potassium Chloride Carbon Dioxide Anion Gap BUN Creatinine Estimated GFR Random Glucose Hemoglobin A1c 5.3 Calcium Magnesium Beta HCG, Quant Impressions ITS Impressions Chest X-Ray 06/07/18 16:39 CONCLUSION: The lungs are clear. Discharge Plan Discharge Disposition Patient Disposition: 01 Discharge Home Discharge Condition Condition: Stable Discharge Order Discharge Orders: Discharge Order (Routine); Ordered 06/09/18 Ordered By: Lala Solitario Discharge Details Anticipated Discharge Date: 06/09/18 Physicians Team Primary Care Provider: Primary Cande Vasques Attending Provider: aLla Solitario Other Providers: Shane Weinstein Rxs /Orders / Referrals /Forms Prescriptions: New methimazole [Tapazole] 5 mg Tablet 5 mg PO DAILY Qty: 30 RF: 0 folic acid 1 mg Tablet 1 mg PO DAILY Qty: 30 RF: 0 thiamine HCl (vitamin B1) 100 mg Tablet 100 mg PO BID Qty: 30 RF: 0 lorazepam [Ativan] 0.5 mg tablet 0.5 mg PO Q8H PRN (Reason: alcohol withdrawal) Qty: 10 RF: 0 multivitamin capsule 1 cap PO DAILY Qty: 30 RF: 0 aspirin 81 mg tablet,delayed release (DR/EC) 81 mg PO DAILY Qty: 30 RF: 0 Continue lisinopril 10 mg tablet 10 mg PO DAILY Qty: 30 RF: 2 Changed diltiazem HCl [Cardizem] 30 mg Tablet 30 mg PO Q6H Qty: 90 RF: 0 Referrals: Primary Care Cande Erickson [Primary Care Provider] - See Instructions ( Please call the physician's office to book the appointment to be seen within [2-3 days at [facility] Stand Alone Forms: Work Release/Restrictions Discharge Instructions Patient Printed Instructions: A-fib (Atrial Fibrillation) (DC), Chest Pain (ED) , Hyperthyroidism (DC), Alcohol Withdrawal (DC), Alcohol Dependence (GEN) Status ED Status: Left Department Discharge Information Discharge Date/Time: 06/09/18 12:13
--- NOTE | 2018-06-09 11:56 | P.PNCA ---
Subjective Interval history: alert, assymptomatic in nad Medications and Allergies Active Medications: Active Medications Acetaminophen (Tylenol) 650 mg PO Q4H PRN PRN Reason: Temp > 100.4 Last Admin: 06/08/18 08:01 Dose: 650 mg Al Hydroxide/Mg Hydroxide (Milk Of Magnesia Liq) 30 ml PO Q12H PRN PRN Reason: Mild Constipation Bisacodyl (Dulcolax Supp) 10 mg RECTAL DAILY PRN PRN Reason: SEVERE CONSITIPATION Diltiazem HCl (Cardizem Inj) 24.69551 mg 0.35 mg/kg (24.88409 mg) IV.PUSH BOLUS PRN PRN Reason: Inadaquate response Last Admin: 06/07/18 16:52 Dose: 24.62132 mg Diltiazem HCl (Cardizem Inj) 24.21338 mg 0.35 mg/kg (24.06359 mg) IV.PUSH BOLUS PRN PRN Reason: Inadaquate response Last Admin: 06/07/18 17:05 Dose: 24.03994 mg Diltiazem HCl (Cardizem) 30 mg PO QID [facility] Last Admin: 06/09/18 08:01 Dose: 30 mg Enoxaparin Sodium (Lovenox Inj) 40 mg SQ Q24H [facility] Last Admin: 06/08/18 20:38 Dose: 40 mg Flumazenil (Romazicon Inj) 0.2 mg IV.PUSH Q1M PRN PRN Reason: OVERSEDATION Folic Acid (Folic Acid) 1 mg PO DAILY [facility] Last Admin: 06/09/18 08:01 Dose: 1 mg Haloperidol Lactate (Haldol Inj) 1 mg IV.PUSH Q15M PRN PRN Reason: for severe agitation Diltiazem HCl 125 mg/ Sodium (Chloride) 125 mls @ 5 mls/hr IV.CONT TITRATE PRN ; Protocol PRN Reason: Per Protocol Last Titration: 06/08/18 17:30 Dose: 5 mg/hr, 5 mls/hr Potassium Chloride 10 meq/ (Dextrose/Sodium Chloride) 1,005 mls @ 42 mls/hr IV.CONT .[id number] [facility] Last Admin: 06/08/18 20:41 Dose: 42 mls/hr Lactulose (Lactulose Liq) 30 ml PO DAILY PRN PRN Reason: SEVERE CONSITIPATION Lisinopril (Prinivil) 10 mg PO DAILY [facility] Last Admin: 06/09/18 08:01 Dose: 10 mg Lorazepam (Ativan) 2 mg PO Q2H PRN PRN Reason: for CIWA 11-14 Last Admin: 06/09/18 08:06 Dose: 2 mg Lorazepam (Ativan Inj) 2 mg IV.PUSH Q2H PRN PRN Reason: for CIWA 11-14 Last Admin: 06/09/18 04:38 Dose: 2 mg Lorazepam (Ativan Inj) 2 mg IV.PUSH Q1H PRN PRN Reason: for CIWA 15-20 Lorazepam (Ativan Inj) 2 mg IV.PUSH Q15M PRN PRN Reason: for CIWA > 20 Lorazepam (Ativan Inj) 1 mg IV.PUSH Q4H PRN PRN Reason: for CIWA 8-10 Lorazepam (Ativan) 1 mg PO Q4H PRN PRN Reason: for CIWA 8-10 Magnesium Oxide (Mag-Ox) 400 mg PO DAILY [facility] Last Admin: 06/09/18 08:01 Dose: 400 mg Methimazole (Tapazole) 5 mg PO DAILY [facility] Last Admin: 06/09/18 08:01 Dose: 5 mg Ondansetron HCl (Zofran Inj) 4 mg IV.PUSH Q6H PRN PRN Reason: NAUSEA OR VOMITING Senna/Docusate Sodium (Avis-Colace) 1 tab PO BID [facility] Last Admin: 06/09/18 08:01 Dose: 1 tab Sennosides (Senokot) 17.2 mg PO Q12H PRN PRN Reason: Moderate Constipation Sodium Chloride (Ns Flush) 2 ml IV.FLUSH BID [facility] Last Admin: 06/09/18 08:01 Dose: 2 ml Sodium Chloride (Ns Flush) 2 ml IV.FLUSH PRN PRN PRN Reason: FLUSH AFTER USING IV ACCESS Thiamine HCl (Vitamin B1) 100 mg PO BID [facility] Last Admin: 06/09/18 08:01 Dose: 100 mg Allergies Allergy/AdvReac Type Severity Reaction Status Date / Time No Known Allergies Allergy Verified 03/06/18 20:13 Physical Exam Vital signs: Vital Signs 06/08/18 12:00 06/08/18 13:00 06/08/18 14:00 Temperature 99.2 F Pulse Rate 88 88 79 Respiratory Rate 20 Blood Pressure 113/66 Pulse Oximetry 98 06/08/18 15:00 06/08/18 16:00 06/08/18 17:00 Temperature 99.0 F Pulse Rate 78 80 76 Respiratory Rate 20 Blood Pressure 120/68 Pulse Oximetry 98 06/08/18 18:00 06/08/18 19:00 06/08/18 20:00 Temperature 98.6 F Pulse Rate 96 H 90 93 H Respiratory Rate 20 Blood Pressure 135/81 Pulse Oximetry 97 06/08/18 21:00 06/08/18 22:00 06/08/18 23:00 Temperature Pulse Rate 96 H 89 89 Respiratory Rate Blood Pressure Pulse Oximetry 06/08/18 23:50 06/09/18 00:00 06/09/18 01:00 Temperature 98.6 F Pulse Rate 85 85 80 Respiratory Rate 20 Blood Pressure 129/82 Pulse Oximetry 99 06/09/18 02:00 06/09/18 03:00 06/09/18 04:00 Temperature 98.6 F Pulse Rate 81 84 82 Respiratory Rate 18 Blood Pressure 155/95 H Pulse Oximetry 98 06/09/18 05:00 06/09/18 05:55 06/09/18 07:00 Temperature Pulse Rate 74 79 101 H Respiratory Rate Blood Pressure Pulse Oximetry 06/09/18 08:00 06/09/18 09:00 06/09/18 10:00 Temperature 98.4 F Pulse Rate 100 H 104 H 110 H Respiratory Rate 18 Blood Pressure 148/96 H Pulse Oximetry 98 06/09/18 11:00 Temperature Pulse Rate 104 H Respiratory Rate Blood Pressure Pulse Oximetry Intake & Output 06/08/18 06/09/18 06/09/18 18:59 06:59 18:59 Intake Total 845 / 845 1966 / 1965 Output Total 900 / 900 1200 / 1200 Balance -55 / -55 765 / 765 Weight 67.4 kg Intake: IV 125 / 125 1005 / 1005 KCl Inj 10 MEQ In D5W/Normal 1005 / 1005 Saline Inj 1,000 ML @ 42 mls/hr IV.CONT .[id number] [facility] Rx#: [id number] Cardizem Inj 125 MG In NS Inj 125 / 125 100 ML @ 5 MG/HR 5 mls/hr IV. CONT TITRATE PRN Rx#:[id number] Magnesium Sulfate Inj 2 GM In 0 / 0 NS Inj 96 ML @ 50 mls/hr IV.SIG ONCE ONE Rx#:[id number] Oral 720 / 720 960 / 960 Output: Urine 900 / 900 1200 / 1200 Other: Date of Last Bowel Movement 06/08/18 # Bowel Movements 1 0 - Constitutional no acute distress - Routine HEENT Exam Head: Present: normocephalic - Routine Neck Exam Present: supple - Routine Respiratory Exam Present: CTA bilaterally - Routine Cardiovascular Exam Present: S1, S2 - Routine Abdominal Exam Present: soft - Routine Extremities Exam Comments: no parmjit Results 06/09/18 06:55 06/09/18 06:55 Cardiac Enzymes 06/07/18 Range/Units 16:35 AST 78 H (15-37) U/L Troponin I 0.05 (0.02-0.05) ng/mL CBC 06/07/18 06/08/18 06/09/18 Range/Units 16:35 08:05 06:55 WBC 9.3 4.0 D 4.1 (4.0-11.0) th/mm3 RBC 5.18 4.15 4.12 (4.00-5.30) mil/mm3 Hgb 15.1 12.2 D 12.0 (11.6-15.3) gm/dL Hct 44.1 35.0 34.7 L (35.0-46.0) % Plt Count 325 196 D 155 (150-450) th/mm3 Neut # (Auto) 6.8 2.1 2.0 (1.8-7.7) th/mm3 Lymph # (Auto) 1.6 1.2 1.5 (1.0-4.8) th/mm3 [place] # (Auto) 0.9 0.5 0.4 (0.0-0.9) th/mm3 Eos # (Auto) 0.0 0.1 0.2 (0.0-0.4) th/mm3 Baso # (Auto) 0.0 0.0 0.0 (0.0-0.2) th/mm3 Comprehensive Metabolic Panel 06/07/18 06/08/18 06/09/18 Range/Units 16:35 08:05 06:55 Sodium 137 141 141 (136-145) meq/L Potassium 3.5 3.2 L 3.2 L (3.5-5.1) meq/L Chloride 101 107 107 (98-107) meq/L Carbon Dioxide 22.9 26.0 23.8 (21.0-32.0) meq/L BUN 7 9 7 (7-18) mg/dL Creatinine 0.78 0.41 L 0.28 L (0.50-1.00) mg/dL Calcium 9.5 8.5 D 8.5 (8.5-10.1) mg/dL AST 78 H (15-37) U/L ALT 68 H (10-53) U/L Alkaline Phosphatase 102 (45-117) U/L Total Protein 8.2 (6.4-8.2) g/dL Albumin 3.7 (3.4-5.0) g/dL Intake and Output 06/08/18 06/09/18 06/09/18 22:59 06:59 14:59 Intake Total 1725 / 1725 960 / 960 Output Total 900 / 900 1200 / 1200 Balance 825 / 825 -240 / -240 Intake: IV 1005 / 1005 KCl Inj 10 MEQ In D5W/Normal 1005 / 1005 Saline Inj 1,000 ML @ 42 mls/hr IV.CONT .[id number] [facility] Rx#: [id number] Oral 720 / 720 960 / 960 Output: Urine 900 / 900 1200 / 1200 Other: Date of Last Bowel Movement 06/08/18 # Bowel Movements 1 0 Weight 67.4 kg - Imaging and Cardiology Imaging: Impressions Chest X-Ray 06/07/18 16:39 CONCLUSION: The lungs are clear. Assessment and Plan - Assessment (1) Alcohol-induced mood disorder Code(s): F10.94 - Alcohol use, unspecified with alcohol-induced mood disorder Status: Acute (2) Alcohol abuse Code(s): F10.10 - Alcohol abuse, uncomplicated Status: Acute (3) Atrial fibrillation with rapid ventricular response Code(s): I48.91 - Unspecified atrial fibrillation Status: Acute (4) Elevated liver enzymes Code(s): R74.8 - Abnormal levels of other serum enzymes Status: Acute - Plan 1.) PAF - [id number] score = 1, rec aspirin 81 mg qd due to fall risk and risk of noncompliance with alcohol abuse, d/w DR Solitario
[2018-06-09 12:02] VITALS: BP 154/93; PULSE 122; TEMP 98.6
== END 2018-06-09 12:13 | disposition home or self-care (01) | DRG 309 ==
LOC: NEPC 16:27 → NEDA 18:58 → HCIS 22:51
PROVIDERS: ADMIT Hospitalist; ATTEND Hospitalist
CPT/HCPCS: 71010; 71045; 80048; 80053; 80307; 82550; 83036; 83735; 84443; 84484; 84702; 85025; 90774; 90775; 90784; 93005; 93306; 96374; 96375; 99285; C8952; J1650; J2060; J3475; J3480; J7042